=== PATIENT | female | born 1995 | race Caucasian/White ===

== ENCOUNTER 2016-12-02 05:13 | Day surgery (SDC) | payer BC ==
[~2016-12-02] VITALS: Ht 160 cm; Wt 44.5 kg
[~2016-12-02 05:13] MED LIST: ACET473E5 PO; ALPR0.25 PO; ALPR1TAB2 PO; ARIP2TAB3 PO; AZIT-21 PO; BSP5T PO; DEXT10TA9 PO; FRS325T PO; LORA0.5T PO; MULT1CAP27 PO; NAPR-243 PO; NITR-65 PO; ONDA4TAB11 PO; mirtazapine
[2016-12-02] MEDS ORDERED: KETOROLAC 30 MG/ML VIAL IVP STA (05:29)
[2016-12-02] MEDS ORDERED: tylenol (05:29)
[2016-12-02] MEDS ORDERED: LACTATED RINGERS 1,000 ML IV ONE ×5 (05:29→13:45)
[2016-12-02] MEDS ORDERED: ONDANSETRON 4 MG/2 ML (SDV) Z0FRAN IVP ONE (05:30)
--- NOTE | 2016-12-02 05:36 | ED Abdominal Pain ---
General Chief Complaint: Abdominal/GI Problems Stated Complaint: RT SIDE PAIN Nursing Triage Note: pt c/o right side pain x 2 weeks, worsening gradually. she has been seen by dr jackson et has had us done checking gallbladder. pt reports pain is severe tonight. pt points to rlq when c/o pain. Sepsis Screen: No Definite Risk Source of Information: Patient History of Present Illness Time Seen By Provider: 05:20 Initial Comments C/O RLQ PAIN X 2 WEEKS, MUCH WORSE SINCE LAST NIGHT PAIN IS ON ENTIRE RIGHT SIDE OF ABDOMEN AND IN RIGHT FLANK AREA TOO,BUT IS WORST IN RLQ HURTS TO WALK, MOVE OR TAKE A DEEP BREATH ONGOING NAUSEA FOR 2 WEEKS, HAD VOMITING ON Thursday11/28/16 NO FEVER NO CONSTIPATION OR DIARRHEA, HAD A NORMAL BM YESTERDAY 12/01/16 NO BURNING ON URINATION, BUT ABDOMEN HURTS TO PUSH/STRAIN TO VOID TOOK 1/2 TYLENOL LAST EVENING WITHOUT RELIEF LMP BEGAN 4 DAYS AGO AND CONTINUES, NORMAL. NO CONTROL SAW INDUSTRIAL ECOLOGIST AT DR. JACKSON'S OFFICE LAST Thursday11/26/16 AND HAD OUTPATIENT LAB AND GB ULTRASOUND--REPORTEDLY NORMAL. HAS HIDA SCAN SCHEDULED FOR 12/15/16 PCP: DR. JACKSON/INDUSTRIAL ECOLOGIST Allergies and Home Medications Allergies Coded Allergies: Penicillins (Unverified Allergy, Unknown, 10/25/15) Home Medications [tylenol] , (Reported) Review of Systems Constitutional: no symptoms reported Respiratory: No Symptoms Reported Cardiovascular: No Symptoms Reported Gastrointestinal: See HPI, Abdominal Pain, Nausea, Vomiting Genitourinary: See HPI Musculoskeletal: see HPI Skin: no symptoms reported Psychiatric/Neurological: No Symptoms Reported Endocrine: No Symptoms Reported Hematologic/Lymphatic: No Symptoms Reported Past Qzezjwu-Fxonbp-Hwneep Hx Patient Social History Alcohol Use: Occasionally Uses Recreational Drug Use: No Smoking Status: Current Everyday Smoker Type Used: Cigarettes Recent Foreign Travel: No Contact w/Someone Who Travel: No Recent Infectious Disease Expo: No Recent Hopitalizations: No Seasonal Allergies Seasonal Allergies: No Surgeries HX Surgeries: Yes (URETHRAL DILATION) Surgeries: Bladder Surgery Respiratory Hx Respiratory Disorders: No Cardiovascular Hx Cardiac Disorders: No Neurological Hx Neurological Disorders: No Reproductive System Hx Reproductive Disorders: No Female Reproductive Disorders: Denies Genitourinary Hx Genitourinary Disorders: No Gastrointestinal Hx Gastrointestinal Disorders: Yes Gastrointestinal Disorders: Gastroesophageal Reflux, Irritable Bowel Musculoskeletal Hx Musculoskeletal Disorders: No Endocrine Hx Endocrine Disorders: No HEENT HX ENT Disorders: No Cancer Hx Cancer: No Psychosocial Hx Psychiatric Problems: Yes Behavioral Health Disorders: ADD/ADHD, Anxiety Integumentary HX Skin/Integumentary Disorder: No Blood Transfusions Hx Blood Disorders: No Family Medical History Significant Family History: No Pertinent Family Hx Physical Exam Vital Signs VS - Last 72 Hours, by Label 12/02/16 05:21 Temp 98.4 Pulse 99 Resp 18 B/P (MAP) 122/84 Capillary Refill : Less Than 3 Seconds General Appearance: other (HOLDING RLQ, WALKS SLOWLY BENT AT WAIST. ), thin Respiratory: normal breath sounds, no respiratory distress, no accessory muscle use Cardiovascular: no edema, no murmur Gastrointestinal: normal bowel sounds, no organomegaly, no pulsatile mass, guarding, rebound, tenderness, No hernia, No mass, other (LIMITED EXAM PT REPEATEDLY GRABS MY HAND AND PUSHES IT AWAY WHEN TRYING TO EXAMINE ANY PART OF ABDOMEN, BUT HAS DIFFUSE RIGHT SIDED AND MID ABDOMINAL TENDERNESS, AND RIGHT FLANK TENDERNESS. + ROVSING'S. + REBOUND, NEGATIVE PSOAS AND OBTURATOR. + HEEL TAP) Back: CVA tenderness (R) Neurologic/Psychiatric: cyber analyst II-XII nml as tested, no motor/sensory deficits, alert, oriented x 3, other (ANXIOUS, CRIES ON EXAM) Skin: normal color, warm/dry, tattoos/piercings (MULTIPLE TATTOOS AND PIERCINGS .) Progress/Results/Core Measures Results/Orders Lab Results Laboratory Tests Test 12/02/16 05:35 12/02/16 06:06 Range/Units White Blood Count 9.1 4.3-11.0 10^3/uL Red Blood Count 4.79 4.35-5.85 10^6/uL Hemoglobin 12.4 11.5-16.0 G/DL Hematocrit 39 35-52 % Mean Corpuscular Volume 81 80-99 FL Mean Corpuscular Hemoglobin 26 25-34 PG Mean Corpuscular Hemoglobin Concent 32 32-36 G/DL Red Cell Distribution Width 14.9 H 10.0-14.5 % Platelet Count 236 130-400 10^3/uL Mean Platelet Volume 11.2 H 7.4-10.4 FL Neutrophils (%) (Auto) 61 42-75 % Lymphocytes (%) (Auto) 29 12-44 % Monocytes (%) (Auto) 9 0-12 % Eosinophils (%) (Auto) 2 0-10 % Basophils (%) (Auto) 0 0-10 % Neutrophils # (Auto) 5.5 1.8-7.8 X 10^3 Lymphocytes # (Auto) 2.6 1.0-4.0 X 10^3 Monocytes # (Auto) 0.8 0.0-1.0 X 10^3 Eosinophils # (Auto) 0.2 0.0-0.3 10^3/uL Basophils # (Auto) 0.0 0.0-0.1 10^3/uL Sodium Level 140 135-145 MMOL/L Potassium Level 3.9 3.6-5.0 MMOL/L Chloride Level 104 98-107 MMOL/L Carbon Dioxide Level 24 21-32 MMOL/L Anion Gap 12 5-14 MMOL/L Blood Urea Nitrogen 7 7-18 MG/DL Creatinine 0.87 0.60-1.30 MG/DL Estimat Glomerular Filtration Rate > 60 BUN/Creatinine Ratio 8 Glucose Level 103 70-105 MG/DL Calcium Level 9.4 8.5-10.1 MG/DL Total Bilirubin 0.8 0.1-1.0 MG/DL Aspartate Amino Transf (AST/SGOT) 16 5-34 U/L Alanine Aminotransferase (ALT/SGPT) 6 0-55 U/L Alkaline Phosphatase 95 40-136 U/L Total Protein 7.8 6.4-8.2 G/DL Albumin 4.6 H 3.2-4.5 G/DL Amylase Level 60 25-125 U/L Lipase 10 8-78 U/L Serum Test, Qualitative NEGATIVE NEGATIVE Urine Color YELLOW Urine Clarity SLIGHTLY CLOUDY Urine pH 5 5-9 Urine Specific [place] 1.030 H 1.016-1.022 Urine Protein 1+ H NEGATIVE Urine Glucose (UA) NEGATIVE NEGATIVE Urine Ketones 1+ H NEGATIVE Urine Nitrite NEGATIVE NEGATIVE Urine Bilirubin NEGATIVE NEGATIVE Urine Urobilinogen NORMAL NORMAL MG/DL Urine Leukocyte Esterase 2+ H NEGATIVE Urine RBC (Auto) 5+ H NEGATIVE Urine RBC 25-50 H /HPF Urine WBC 2-5 /HPF Urine Squamous Epithelial Cells 5-10 /HPF Urine Crystals PRESENT H /LPF Urine Calcium Oxalate Crystals FEW H /LPF Urine Bacteria FEW H /HPF Urine Casts NONE /LPF Urine Mucus MODERATE H /LPF Urine Culture Indicated YES My Orders Orders - RUCHI,CINTHYA K DO Urine Bedside (12/02/16 05:22) Ua Culture If Indicated (12/02/16 05:22) Saline Lock/Iv-Start (12/02/16 05:29) Ct Abd/Pelv W (Appendicitis) (12/02/16 05:29) Amylase (12/02/16 05:29) Cbc With Automated Diff (12/02/16 05:29) Comprehensive Metabolic Panel (12/02/16 05:29) Lipase (12/02/16 05:29) Saline Lock/Iv-Start (12/02/16 05:29) Lactated Ringers (Lr 1000 Ml Iv Solution (12/02/16 05:29) Ondansetron Injection (Zofran Injectio (12/02/16 05:30) Ketorolac Injection (Toradol Injection) (12/02/16 05:29) Hcg,Qualitative Serum (12/02/16 05:56) Iohexol Injection (Omnipaque 350 Mg/Ml 1 (12/02/16 06:30) Ns (Ivpb) (Sodium Chloride 0.9% Ivpb Bag (12/02/16 06:30) Urine Culture (12/02/16 06:06) Medications Given in ED Current Medications Medications Dose Ordered Sig/Neftali Route Start Time Stop Time Status Last Admin Dose Admin Iohexol 100 ml ONCE ONCE IV 12/02/16 06:30 12/02/16 06:31 DC 12/02/16 06:24 100 ML Lactated Ringer's 1,000 ml @ 0 mls/hr Q0M ONCE IV 12/02/16 05:29 12/02/16 05:31 DC 12/02/16 05:40 1,000 MLS/HR Ondansetron HCl 4 mg ONCE ONCE IVP 12/02/16 05:30 12/02/16 05:31 DC 12/02/16 05:40 4 MG Sodium Chloride 100 ml ONCE ONCE IV 12/02/16 06:30 12/02/16 06:31 DC 12/02/16 06:24 80 ML Vital Signs/I&O Vital Sign - Last 12Hours 12/02/16 05:21 Temp 98.4 Pulse 99 Resp 18 B/P (MAP) 122/84 Blood Pressure Mean: [address] ABDOMEN/PELVIS--APPENDIX NOT VISUALIZED, SMALL AMOUNT OF FREE FLUID IN PELVIS , OTHERWISE NO ACUTE PROCESS, PER [facility] VIA FAX @ [id number] Reviewed: Reviewed by Me Departure Communication Progress Notes 711--SPOKE WITH DR. DEXTER , SURGEON TOUR COORDINATOR, ACCEPTS PT FOR ADMIT Impression Impression: Primary Impression: RLQ abdominal pain Disposition: ADMITTED INPATIENT Condition: Stable Decision to Admit Reason: Admit from ER (General) Decision to Admit/Date: Dec 02, 2016 Time/Decision to Admit Time: 07:15 Departure-Patient Inst. Referrals: EKTA JACKSON MD (PCP/Family) Primary Care Physician CINTHYA HOPPER DO Dec 02, 2016 05:35
[2016-12-02 05:48] LABS: BASOPHILS % (AUTO) 0 % (0-10); EOSINOPHILS # (AUTO) 0.2 10^3/uL (0.0-0.3); EOSINOPHILS % (AUTO) 2 % (0-10); LYMPHOCYTES # (AUTO) 2.6 X 10^3 (1.0-4.0); LYMPHOCYTES % (AUTO) 29 % (12-44); MEAN CORPUSCULAR HEMOGLOBIN 26 PG (25-34); MEAN CORPUSCULAR HGB CONC 32 G/DL (32-36); MEAN CORPUSCULAR VOLUME 81 FL (80-99); MEAN PLATELET VOLUME 11.2 FL (7.4-10.4); MONOCYTES # (AUTO) 0.8 X 10^3 (0.0-1.0); MONOCYTES % (AUTO) 9 % (0-12); NEUTROPHILS # (AUTO) 5.5 X 10^3 (1.8-7.8); NEUTROPHILS % (AUTO) 61 % (42-75); PLATELET COUNT 236 10^3/uL (130-400); RED BLOOD COUNT 4.79 10^6/uL (4.35-5.85); RED CELL DISTRIBUTION WIDTH 14.9 % (10.0-14.5); WHITE BLOOD COUNT 9.1 10^3/uL (4.3-11.0)
[2016-12-02 06:14] LABS: ALANINE AMINOTRANSFERASE 6 U/L (0-55); ALBUMIN 4.6 G/DL (3.2-4.5); AMYLASE 60 U/L (25-125); ANION GAP 12 MMOL/L (5-14); ASPARTATE AMINO TRANSFERASE 16 U/L (5-34); BILIRUBIN,TOTAL 0.8 MG/DL (0.1-1.0); BLOOD UREA NITROGEN 7 MG/DL (7-18); BUN/CREATININE RATIO 8; CALCIUM 9.4 MG/DL (8.5-10.1); CARBON DIOXIDE 24 MMOL/L (21-32); CHLORIDE 104 MMOL/L (98-107); CREATININE SERUM 0.87 MG/DL (0.60-1.30); GFR ESTIMATED > 60; GLUCOSE 103 MG/DL (70-105); LIPASE 10 U/L (8-78); POTASSIUM 3.9 MMOL/L (3.6-5.0); SODIUM 140 MMOL/L (135-145); TOTAL PROTEIN 7.8 G/DL (6.4-8.2)
[2016-12-02 06:14] LABS: BILIRUBIN,URINE NEGATIVE (NEGATIVE); KETONES,URINE 1+ (NEGATIVE); LEUKOCYTE ESTERASE ,URINE 2+ (NEGATIVE); NITRITE,URINE NEGATIVE (NEGATIVE); PH,URINE 5 (5-9); PROTEIN,URINE 1+ (NEGATIVE); UROBILINOGEN,URINE NORMAL (NORMAL)
[2016-12-02 06:28] LABS: CALCIUM OXALATE CRYSTALS,UR FEW /LPF
[2016-12-02] MEDS ORDERED: IOHEXOL 350 MG/ML 100 ML (OMNIPAQUE 350) VIAL IV ONE (06:30)
[2016-12-02] MEDS ORDERED: NS 100 ML (IVPB) BAG IV ONE (06:30)
--- NOTE | 2016-12-02 07:42 | Diagnostic Imaging Report ---
PROCEDURE: CT abdomen and pelvis with contrast, rule out appendicitis. TECHNIQUE: Multiple contiguous axial images were obtained through the abdomen and pelvis after the administration of intravenous contrast. INDICATION: Two-week history of right-sided abdominal pain progressively worsening. CORRELATION STUDY: 10/25/2015 FINDINGS: LOWER THORAX: Clear. LIVER: Unremarkable. GALLBLADDER: Present and unremarkable. No bile duct dilatation. SPLEEN: Unremarkable. PANCREAS: Unremarkable. ADRENAL GLANDS: Unremarkable. KIDNEYS: Normal configuration. No calcification or obstruction. ABDOMINAL AORTA: Unremarkable, nonaneurysmal. GASTROINTESTINAL TRACT: Mild severity fecal retention. Diffuse bowel distention is present. Cecum sits very low in the pelvis and appendix cannot be discretely localized. URINARY BLADDER: Decompressed. REPRODUCTIVE: Probable tampon within the vaginal vault. Uterus appearing unremarkable. Endometrium prominent. Small amount of free pelvic fluid is present. OSSEOUS STRUCTURES: No acute abnormality. IMPRESSION: 1. The appendix not definitively localized, therefore cannot be cleared. Remainder of the examination unremarkable. Dictated by: Dictated on workstation # [id number]
[2016-12-02 07:55] VITALS: BP 120/76
[2016-12-02] MEDS ORDERED: CATHETER FLUSH 10 ML SYR IV PRN (08:15)
[2016-12-02] MEDS ORDERED: ACET1TAB96 PO (08:29)
[2016-12-02] MEDS ORDERED: ACET-2469 PO (08:29)
[2016-12-02] MEDS: KETOROLAC 30 MG/ML VIAL IV PRN ×2 (10:29→21:23)
[2016-12-02] MEDS ORDERED: BUPIVACAINE 0.5% 30 ML (SENSORCAINE) VIAL ONE (11:53)
[2016-12-02] MEDS ORDERED: BUP/EPI 0.5% 1:200,000 (SENSORCAINE) 30 ML VIAL ONE (11:56)
[2016-12-02] MEDS: LACTATED RINGERS 1,000 ML IV SCH ×5 (11:57→21:11)
[2016-12-02 12:00] VITALS: BP 115/71
[2016-12-02] MEDS ORDERED: MIDAZOLAM 2 MG/2 ML (VERSED) VIAL ONE (12:09)
[2016-12-02] MEDS ORDERED: SEVOFLURANE (ULTANE) 15 ML INHAL SOLN ONE ×2 (12:09→13:33)
[2016-12-02] MEDS ORDERED: fentaNYL INJECTION 100 MCG/2 ML AMP ONE (12:09)
[2016-12-02] MEDS ORDERED: ROCURONIUM 50 MG/5 ML (ZEMURON) VIAL IV ONE (12:09)
[2016-12-02] MEDS ORDERED: CLINDAMYCIN 600 MG/4ML (CLEOCIN) VIAL ONE (12:10)
[2016-12-02] MEDS ORDERED: ONDANSETRON 4 MG/2 ML (SDV) Z0FRAN ONE ×3 (12:11→14:09)
[2016-12-02] MEDS ORDERED: DEXAMETHASONE PF 10 MG/ML (DECADRON) VIAL ONE (12:11)
--- NOTE | 2016-12-02 13:24 | Progress Note-Pre Operative ---
Pre-Operative Progress Note H&P Reviewed The H&P was reviewed, patient examined and no changes noted. Date H&P Reviewed: Dec 02, 2016 Time H&P Reviewed: 12:00 Pre-Operative Diagnosis: acute appendicitis MAYRA DEXTER MD Dec 02, 2016 1:24 pm
[2016-12-02] MEDS ORDERED: NEOSTIGMINE (BLOXIVERZ ) 1 MG/1ML 10 ML VIAL ONE (13:28)
[2016-12-02] MEDS ORDERED: GLYCOPYRROLATE 0.2 MG/ML (ROBINUL) 2 ML VIAL ONE (13:28)
[2016-12-02] MEDS ORDERED: morphine INJ 4 MG/ML 1 ML (VIAL/SYRINGE) IVP PRN (13:30)
[2016-12-02] MEDS ORDERED: CLINDAMYCIN 600 MG/50 ML IVPB 50 ML IV ONE (13:30)
[2016-12-02] MEDS ORDERED: CLINDAMYCIN INJECTION 600 MG in NS (IVPB) 50 ML IV ONE (13:30)
[2016-12-02] MEDS ORDERED: SULF1TAB35 PO (13:32)
[2016-12-02] MEDS ORDERED: HYDR-3729 PO (13:32)
[2016-12-02] MEDS ORDERED: KETOROLAC 30 MG/ML VIAL ONE (13:33)
--- NOTE | 2016-12-02 13:33 | Discharge Inst-Surgical ---
D/C Lap Instructions-GUERITA New, Converted, or Re-Newed RX: RX on Chart Follow Up Appt in 2 weeks Activity as tolerated No driving for 24 hours No driving while on pain medications Incentive Spirometry use every 2 hours while awake Regular Diet Symptoms to Report: Fever over 101 degree F, Nausea/Vomiting Infection Signs and Symptoms to report: Increased redness, Foul odor of wound, Increased drainage Bathing instructions: May shower Operative Area Clean/Dry; Keep incision clean/dry If any problems/questions: Contact your physician or go to Emergency Room MAYRA DEXTER MD Dec 02, 2016 1:33 pm
[2016-12-02] MEDS ORDERED: DOXYCYCLINE INJECTION 100 MG in NS (IVPB) 100 ML IV NR (13:35)
[2016-12-02] MEDS ORDERED: metroNIDAZOLE 500MG/100ML IVPB 100 ML IV NR (13:38)
[2016-12-02] MEDS: ONDANSETRON 4 MG/2 ML (SDV) Z0FRAN IVP PRN ×2 (13:40→14:13)
[2016-12-02] MEDS ORDERED: morphine INJ 10 MG/ML 1ML (SYR OR VIAL) ONE (13:45)
[2016-12-02] MEDS: morphine INJ 10 MG/ML 1ML (SYR OR VIAL) IVP PRN ×3 (13:59→14:11)
[2016-12-02] MEDS ORDERED: fentaNYL INJECTION 100 MCG/2 ML AMP IVP PRN (14:00)
[2016-12-02] MEDS: metroNIDAZOLE 500MG/100ML IVPB 100 ML IV NR ×2 (15:12→22:41)
[2016-12-02] MEDS ORDERED: PROMETHAZINE 25 MG (PHENERGAN) TAB ONE (15:38)
[2016-12-02] MEDS ORDERED: PROMETHAZINE 25 MG (PHENERGAN) TAB PO PRN (15:45)
[2016-12-02 16:00] VITALS: BP 119/74
[2016-12-02] MEDS: HYDROcodone/APAP 5 MG/325 MG (LORTAB) TAB PO PRN ×2 (16:08→20:13)
[2016-12-02] MEDS: ONDANSETRON 4 MG/2 ML (SDV) Z0FRAN IV PRN (19:15)
[2016-12-02 19:50] VITALS: BP 120/75
[2016-12-02] MEDS: NICOTINE 14 MG (NICODERM) PATCH TD SCH (21:00)
[2016-12-02] MEDS: DOXYCYCLINE 100 MG/NS 100 ML IVPB IV SCH ×2 (21:23)
[2016-12-02] MEDS: ALPRAZolam 0.25 MG (XANAX) TAB PO PRN (22:56)
[2016-12-03] MEDS: ONDANSETRON 4 MG/2 ML (SDV) Z0FRAN IV PRN (00:08)
[2016-12-03] MEDS: HYDROcodone/APAP 5 MG/325 MG (LORTAB) TAB PO PRN ×4 (00:50→14:22)
[2016-12-03 00:55] VITALS: BP 113/58
[2016-12-03] MEDS: LACTATED RINGERS 1,000 ML IV SCH (04:05)
[2016-12-03] MEDS: KETOROLAC 30 MG/ML VIAL IV PRN ×2 (04:06→10:27)
[2016-12-03 04:50] VITALS: BP 120/78
[2016-12-03] MEDS: metroNIDAZOLE 500MG/100ML IVPB 100 ML IV NR ×2 (05:59→14:13)
--- NOTE | 2016-12-03 07:49 | HISTORY AND PHYSICAL ---
DATE OF ADMISSION: 12/02/2016 ATTENDING PRIMARY CARE PHYSICIAN: Dr. Onofre Roth. Ms. Petty Templeton is a 21-year-old female who presented early this morning to [facility] emergency department with abdominal pain. She reported that the pain had started last night and has been on the right side of the abdomen and did localize towards the right lower abdominal quadrant. She reports that she has also had some issues with nausea and vomiting in the past few weeks. She does not report any issues with constipation and does state that she had a bowel movement yesterday which was normal in consistency. She does not report any red blood per rectum no any dark tarry stools. She reports having normal menstrual cycles. No history of menometrorrhagia. She did have outpatient work-up done including a gallbladder ultrasound, which did not show any gallstones. Upon examination, she does have pain at McBurney's point in the right lower abdominal quadrant, voluntary guarding. No rebound. PAST MEDICAL HISTORY: 1. Irritable bowel. 2. Gastroesophageal reflux disease. 3. ADHD. PAST SURGERIES: Urethral dilatation. ALLERGIES: PENICILLIN MEDICATIONS: Tylenol p.r.n. SOCIAL HISTORY: Positive smoke, occasional social alcohol. VITAL SIGNS: Temperature 98.7, blood pressure 120/76, pulse 65, respirations 20, pulse 100% on room air. REVIEW OF SYSTEMS: This is a well-nourished female, currently guarded secondary to the abdominal pain. She is not experiencing any shortness of breath or difficulty breathing. No chest pain, palpitations, diaphoresis. Intermittent episodes of nausea. No vomiting. No fever, chills, no recent inadvertent weight loss. PHYSICAL EXAMINATION: CHEST: Clear. HEART: Regular. EXTREMITIES: No lower extremity edema. Negative Homans sign. HEENT: No scleral icterus. No cervical lymphadenopathy. ABDOMEN: Soft, nondistended. There is pain in the right lower abdominal quadrant at McBurney's point with voluntary guarding. No rebound. LABS: WBC 9.1, hemoglobin 12.4, hematocrit 39, platelets 236, urinalysis did show 2+ leukocyte esterase. ASSESSMENT AND PLAN: 21-year-old female with right lower abdominal quadrant pain most likely consistent with early acute appendicitis based on her history and physical examination. CT scan was performed, which did not visualize the appendix. We will proceed with a diagnostic laparoscopy and laparoscopic appendectomy. Job ID: [id number] Dictated Date: 12/02/2016 12:04:17 Charge Machine Operator Date: 12/03/2016 07:32:35/marc
[2016-12-03 08:00] VITALS: BP 104/68
[2016-12-03] MEDS: ALPRAZolam 0.25 MG (XANAX) TAB PO PRN (08:35)
[2016-12-03] MEDS: DOXYCYCLINE 100 MG/NS 100 ML IVPB IV SCH ×2 (08:35)
[2016-12-03] MEDS: NICOTINE 14 MG (NICODERM) PATCH TD SCH (08:41)
--- NOTE | 2016-12-03 09:43 | Anesthesia-General Post-Op ---
General Patient Condition Mental Status/LOC: Same as Preop Cardiovascular: Satisfactory Nausea/Vomiting: Absent Respiratory: Satisfactory Pain: Controlled Complications: Absent Post Op Complications Complications None Follow Up Care/Instructions Patient Instructions None needed. Anesthesia/Patient Condition Patient Condition Patient is doing well, no complaints, stable vital signs, no apparent adverse anesthesia problems. No complications reported per nursing. LADARIUS LASSITER CRNA Dec 03, 2016 09:43
--- NOTE | 2016-12-03 11:50 | Progress Note (SOAP) ---
Subjective Subjective/Events-last exam doing well. pain controlled. tolerating diet. ambulating well. Objective Exam Vital Signs Date Time Temp Pulse Resp B/P (MAP) Pulse Ox O2 Delivery O2 Flow Rate FiO2 12/03/16 08:00 98.1 66 16 104/68 98 Room Air 12/03/16 04:50 98.9 56 12 120/78 98 Room Air 12/03/16 00:55 98.6 59 12 113/58 97 Room Air 12/02/16 20:00 Room Air 12/02/16 19:50 99.1 69 18 120/75 97 Room Air 12/02/16 16:00 97.9 65 20 119/74 99 Room Air 12/02/16 12:00 98.4 62 18 115/71 100 Room Air I & O 12/03/16 07:00 Intake Total 4960 ml Output Total 4000 ml Balance 960 ml Capillary Refill : Less Than 3 Seconds General Appearance: No Apparent Distress HEENT: PERRL/EOMI Neck: Full Range of Motion Respiratory: Chest Non Tender Cardiovascular: Regular Rate, Rhythm Gastrointestinal: normal bowel sounds, soft, tenderness Extremity: Normal Capillary Refill Neurologic/Psychiatric: Alert, Oriented x3 Skin: Normal Color Results Lab Microbiology 12/02/16 Urine Culture - Preliminary, Resulted Strep, Beta Hemolytic Group B Staph, Coag Neg (Environmental Safety Specialist) Assessment/Plan Assessment/Plan Assess & Plan/Chief Complaint periappendicitis secondary PID. results explained to patient as well as preventative measures. she will proceed with f/u with PMD and possible SKIVER BOX TOE consulation. home soon. Clinical Quality Measures DVT/VTE Risk/Contraindication: Risk Factor Score Per Nursin RFS Level Per Nursing on Admit: 1=Low/No VTE PPX MAYRA DEXTER MD Dec 03, 2016 11:50 am
[2016-12-03 12:00] VITALS: BP 142/86
[2016-12-03 14:30] VITALS: BP 142/86
--- NOTE | 2016-12-04 09:49 | OPERATIVE REPORT ---
PROCEDURE PHYSICIAN: MAYRA DEXTER DATE OF PROCEDURE: 12/02/2016 ATTENDING PRIMARY CARE PHYSICIAN: Dr. Onofre Roth. PREOPERATIVE DIAGNOSIS: Acute appendicitis. POSTOPERATIVE DIAGNOSIS: Periappendicitis and pelvic inflammatory disease. PROCEDURE: Diagnostic laparoscopy and laparoscopic appendectomy. SURGEON: Dr. Dexter. ANESTHESIA: General endotracheal. ESTIMATED BLOOD LOSS: Minimal. FINDINGS: Inflammatory changes within the right tuboovarian complex as well as encroaching upon the appendix causing periappendicitis. There was also some inflammatory changes over the right dome of the liver, a small cyst was identified of the left ovary. DISPOSITION: The patient tolerated the procedure well. Ms. Petty Templeton is a 21-year-old female who presented to [facility] emergency department early this morning for abdominal pain. She reports that the pain initially started a few weeks ago and was associated with some nausea. She underwent a work-up including an ultrasound, which did not show any gallstones. She reported the pain as more in the right lower abdominal quadrant and has persisted however has been manageable. She reports that last night the pain was much more intense. She does not report any fever or chills. She does not report any episodes of diarrhea nor constipation, states that she does have a bowel movement daily. A CT scan was performed, which did not visualize the appendix. Upon examination, she did have significant pain at McBurney's point with voluntary guarding in no rebound. The patient was brought to the operating room, laid supine on the table. After adequate IV pain and sedative medications and general endotracheal intubation the abdomen was prepped and draped in the standard surgical fashion. 0.5% Marcaine with epinephrine was used to anesthetize the overlying skin in the left upper abdominal quadrant. A small transverse incision made using a 15 blade. An 0 silk suture was applied to the medial aspect of the incision for retraction and a Veress needle inserted with low opening pressure of 0 mmHg and the abdomen was then insufflated to 15 mmHg pressure. The Veress needle removed and a 5 mm Xcel trocar placed followed by a 5 mm port 45 degree angle laparoscope, visualizing the peritoneal cavity. A four-quadrant abdominal exploration was performed. There was inflammation of the appendix and it was adherent to the right true and ovary. There was no abscess identified. There was some mild inflammatory changes over the right subphrenic space as well. Upon dissection of the appendix, there was periappendicitis. We are unsure if this is due to appendicitis burst; however, this may also be due to pelvic inflammatory disease. Under direct visualization we then proceeded to place the infraumbilical 10 mm port after the skin and peritoneum were anesthetized using 0.5% Marcaine with epinephrine and a transverse skin incision made using a 15 blade. In a similar manner, a suprapubic 5 mm port was placed. The patient was placed in Trendelenburg position. The appendix was then dissected out using blunt dissection. No abscesses were identified. There was increased turgor pressure of the appendix as well as mild inflammatory changes. A window was then created between the mesoappendix and the base of the appendix at the cecum using a [place] dissector. The appendix was then stapled and transected at the cecal base using a MANISH 45 mm stapler with a 2.5 mm thickness load. The mesoappendix was then stapled and transected with the same stapler with a 2 mm thickness reload. Good hemostasis was observed. The pelvis and abdomen was then copiously irrigated with saline and suctioned out. The appendix was removed through the 10 mm port site using an Endo Catch bag. The fascia and peritoneum and 10 mm port were then closed under direct visualization using a Lalo-Delvin device and 0 Vicryl suture. The abdomen was desufflated and the remaining ports removed. All skin incisions were closed using 4-0 Monocryl running subcuticular sutures. Wounds were then cleaned and covered with Dermabond. The patient tolerated the procedure well. We will admit her back to the floor and proceed with amoxicillin and Flagyl one dose and once she is tolerating liquids, has good pain control with oral pain medications and ambulating well, we will discharge her home. We will await the pathology results and also if she does have continuing or recurrent symptoms, we will refer her to gynecology. Job ID: [id number] Dictated Date: 12/02/2016 13:41:07 Waiter/Waitress Cabin Class Date: 12/04/2016 09:35:46 / marc
== END 2016-12-03 14:30 | disposition home or self-care (01) ==
LOC: EDUNIT# 05:13 → ER 05:17 → 4TH 07:15 → UNDOADMOB 07:15 → SDC 07:15 → UNDODISOB 12-03 14:30
PROVIDERS: ATTEND Surgery Pediatric Surgery
DX: K35.80 Unspecified acute appendicitis (principal); N73.9 Female pelvic inflammatory disease, unspecified
CPT/HCPCS: 36415; 74177; 80053; 81000; 82150; 83690; 84703; 85025; 87081; 87088; 88304; 96361; 96374; 96375

== ENCOUNTER 2017-04-04 09:29 | Emergency (ER) | payer BC ==
[~2017-04-04] VITALS: Ht 160 cm; Wt 44.5 kg
[~2017-04-04 09:29] MED LIST changes: +ACET-2469 PO; +ACET1TAB96 PO; +HYDR-3729 PO; +SULF1TAB35 PO; +tylenol
--- NOTE | 2017-04-04 10:05 | ED Neck-Back Pain/Injury ---
General Chief Complaint: Head/Cervical Problems Stated Complaint: BACK PAIN Nursing Triage Note: PT CO OF L NECK AND R SHOULDER PAIN. SINCE AWAKENING YESTERDAY AM Nursing Sepsis Screen: No Definite Risk Source of Information: Patient Exam Limitations: No Limitations History of Present Illness Time Seen by Provider: 09:54 Initial Comments Here with report of neck pain and difficulty with turning the head social to the right. Complains of right lateral neck pain from the scapula to the base of the skull and now she is having some left-sided pain as well. Denies numbness or weakness. Not better with Tylenol or Excedrin. Denies fever or chills. Denies recent illness or injury. Location: Paraspinous Muscles Timing/Duration: 2-3 Days Severity: Moderate Pain/Injury Location: Back, Neck Modifying Factors: Improves With Immobilization, Worse With Movement Associated Symptoms: muscle spasms, No fever, No weakness, No sensory/motor loss Allergies and Home Medications Allergies Coded Allergies: Penicillins (Unverified Allergy, Unknown, 10/25/15) Home Medications No Active Prescriptions or Reported Meds Constitutional: see HPI, No chills, No fever EENTM: no symptoms reported Respiratory: no symptoms reported Cardiovascular: no symptoms reported Gastrointestinal: no symptoms reported, No nausea, No vomiting Genitourinary: No dysuria, No pain Musculoskeletal: see HPI, muscle pain, muscle stiffness, neck pain Skin: No change in color, No lesions Past Vwuxymz-[id number]-Pifgdf Hx Patient Social History Alcohol Use: Occasionally Uses Recreational Drug Use: No Smoking Status: Current Everyday Smoker Type Used: Cigarettes Recent Foreign Travel: No Contact w/Someone Who Travel: No Recent Infectious Disease Expo: No Recent Hopitalizations: No Seasonal Allergies Seasonal Allergies: No Surgeries HX Surgeries: Yes (URETHRAL DILATION) Surgeries: Appendectomy, Bladder Surgery Respiratory Hx Respiratory Disorders: No Cardiovascular Hx Cardiac Disorders: No Neurological Hx Neurological Disorders: No Reproductive System Hx Reproductive Disorders: No Female Reproductive Disorders: Denies Genitourinary Hx Genitourinary Disorders: No Gastrointestinal Hx Gastrointestinal Disorders: Yes Gastrointestinal Disorders: Irritable Bowel Musculoskeletal Hx Musculoskeletal Disorders: No Endocrine Hx Endocrine Disorders: No HEENT HX ENT Disorders: No Cancer Hx Cancer: No Psychosocial Hx Psychiatric Problems: Yes Behavioral Health Disorders: ADD/ADHD, Anxiety Integumentary HX Skin/Integumentary Disorder: No Blood Transfusions Hx Blood Disorders: No Reviewed Nursing Assessment Reviewed/Agree w Nursing PMH: Yes Family Medical History Significant Family History: No Pertinent Family Hx Family Medial History: Hypertension 19 FATHER Physical Exam Vital Signs Vital Sign - Last 12Hours 04/04/17 09:35 Temp 97.4 Pulse 84 Resp 18 B/P (MAP) 120/90 Pulse Ox 100 Capillary Refill : Less Than 3 Seconds General Appearance: No Apparent Distress, WD/WN HEENT: PERRL/EOMI, Pharynx Normal Neck: Supple, Limited Range of Motion, No Lymphadenopathy (L), No Lymphadenopathy (R), Tender Lateral (right greater than left. She has), No Tender Midline Cardiovascular: Regular Rate, Rhythm, Normal Peripheral Pulses Respiratory: Lungs Clear, Normal Breath Sounds Back: No CVA Tenderness, No Vertebral Tenderness, Decreased Range of Motion, Muscle Spasm (right paraspinous from the scapula to the base of the skull) Extremity: Normal Inspection, Non Tender Neurologic/Psychiatric: Alert, Oriented x3 Skin: Normal Color, Warm/Dry Progress/Results/Core Measures Results/Orders My Orders Orders - JOO BERUMEN MD Hydrocodone/Apap 7.5/325 Tab (Lortab 7. (04/04/17 10:06) Ketorolac Injection (Toradol Injection) (04/04/17 10:06) Orphenadrine Injection (Norflex Injectio (04/04/17 10:06) Vital Signs/I&O Vital Sign - Last 12Hours 04/04/17 09:35 Temp 97.4 Pulse 84 Resp 18 B/P (MAP) 120/90 Pulse Ox 100 Blood Pressure Mean: 100 Progress Note : Progress Note Seen and evaluated. Toradol 60 mg IM, Norflex 60 mg IM and hydrocodone 7.5 mg by mouth. Monitor patient. Much improved afterwards. Discharged home with return precautions. Patient verbalize understanding instructions and agreement with plan. Departure Impression Impression: Primary Impression: Neck sprain Qualified Codes: S13.9XXA - Sprain of joints and ligaments of unspecified parts of neck, initial encounter Additional Impression: Upper back strain Qualified Codes: S29.012A - Strain of muscle and tendon of back wall of thorax , initial encounter Disposition: 01 HOME, SELF-CARE Condition: Improved Departure-Patient Inst. Decision time for Depature: 12:09 Referrals: EKTA ZIEGLER MD (PCP/Family) Primary Care Physician Patient Instructions: Cervical Muscle Strain (DC), Neck Sprain (DC) Add. Discharge Instructions: All discharge instructions reviewed with patient and/or family. Voiced understanding. Take ibuprofen 600 mg every 8 hours as needed for pain. Take other medications as prescribed. Do not take Tylenol and the prescribed pain medicine hydrocodone /acetaminophen as they both have acetaminophen in them. Do not take the prescribed pain medicine while at work or driving as it will make you drowsy. You may take Tylenol instead of the prescribed pain medicine while at work. Follow-up with your Dr. in a few days for recheck. Return for worse pain, fever , vomiting, weakness, breathing problems or other concerns as needed. Scripts Hydrocodone/Acetaminophen (Hydrocodon -Acetaminophen 5-325) 1 Each Tablet 1 EACH PO Q6H Y for PAIN-MODERATE, #8 TAB 0 Refills Prov: JOO BERUMEN MD 04/04/17 Cyclobenzaprine HCl (Cyclobenzaprine HCl) 10 Mg Tablet 10 MG PO Q8H Y for SPASMS, #12 TAB 0 Refills Prov: JOO BERUMEN MD 04/04/17 Work/School Note: Work Release Form Date Seen in the Emergency Department: Apr 04, 2017 Return to Work: Apr 06, 2017 Other Restrictions Listed Below: No lifting greater than 10 pounds for 7 days Restrictions: Then may return to normal activity JOO BERUMEN MD Apr 04, 2017 10:05
[2017-04-04] MEDS ORDERED: KETOROLAC 60 MG/2 ML VIAL IM STA (10:06)
[2017-04-04] MEDS ORDERED: HYDROcodone/APAP 7.5 MG/325 MG (LORTAB, LORCET PLUS) TABLET PO STA (10:06)
[2017-04-04] MEDS ORDERED: ORPHENADRINE 60 MG/2 ML (NORFLEX) AMP IM STA (10:06)
[2017-04-04] MEDS ORDERED: HYDR-3812 PO (12:13)
[2017-04-04] MEDS ORDERED: CYCL10TA9 PO (12:13)
[2017-04-04 12:19] VITALS: BP 116/72
== END 2017-04-04 12:19 | disposition home or self-care (01) ==
LOC: EDUNIT# 09:29 → ER 09:32
DX: S13.9XXA Sprain of joints and ligaments of unspecified parts of neck, initial encounter (principal); S29.012A Strain of muscle and tendon of back wall of thorax, initial encounter; F90.9 Attention-deficit hyperactivity disorder, unspecified type; F41.9 Anxiety disorder, unspecified; F17.210 Nicotine dependence, cigarettes, uncomplicated; Z90.49 Acquired absence of other specified parts of digestive tract; Z87.19 Personal history of other diseases of the digestive system; X58.XXXA Exposure to other specified factors, initial encounter
CPT/HCPCS: 96372; 99284

== ENCOUNTER 2017-08-04 09:55 | Emergency (ER) | payer BC ==
[~2017-08-04] VITALS: Ht 157.5 cm; Wt 44.9 kg
[~2017-08-04 09:55] MED LIST changes: +CYCL10TA9 PO; +HYDR-3812 PO
[2017-08-04 10:35] LABS: BILIRUBIN,URINE NEGATIVE (NEGATIVE); KETONES,URINE NEGATIVE (NEGATIVE); LEUKOCYTE ESTERASE ,URINE 1+ (NEGATIVE); NITRITE,URINE NEGATIVE (NEGATIVE); PH,URINE 6 (5-9); PROTEIN,URINE 1+ (NEGATIVE); UROBILINOGEN,URINE 1 MG/DL (NORMAL)
--- NOTE | 2017-08-04 10:57 | ED GU-Female ---
General Chief Complaint: -Female Stated Complaint: MENSTRUAL ISSUES Nursing Triage Note: ARRIVED VIA AMB TO ROOM 09. STATES SHE GOT OFF HER PERIOD OVER A WEEK AGO AND SHE STARTED BLEEDING AGAIN YESTERDAY. CALLED HER DR'S OFFICE WHO TOLD HER THERE WAS NOTHING REALLY TO DO SO SHE DECIDED TO COME TO ER. Nursing Sepsis Screen: No Definite Risk Source: patient Exam Limitations: no limitations History of Present Illness Time seen by provider: 10:55 Initial Comments 3 her with reports of irregular vaginal bleeding. She finished her regular menstrual period about a week ago and started bleeding again heavily yesterday and passing some tissue. She's had intermittent nausea with periods for the past few weeks. She is scheduled for a Pap smear at [facility] as office in [place] tomorrow. Timing/Duration: just prior to arrival Severity/Quality: moderate Location: suprapubic Radiation: none Activities at Onset: none Associated Symptoms: denies symptoms Allergies and Home Medications Allergies Coded Allergies: Penicillins (Unverified Allergy, Unknown, 10/25/15) Home Medications Cyclobenzaprine HCl 10 Mg Tablet, 10 MG PO Q8H PRN for SPASMS, #12 Ref 0 Prescribed by: JOO BERUMEN on 04/04/17 1213 Hydrocodone/Acetaminophen 1 Each Tablet, 1 EACH PO Q6H PRN for PAIN-MODERATE, # 8 Ref 0 Prescribed by: JOO BERUMEN on 04/04/17 1213 Constitutional: see HPI EENTM: see HPI Respiratory: no symptoms reported Cardiovascular: no symptoms reported Genitourinary: see HPI Musculoskeletal: no symptoms reported Skin: no symptoms reported Psychiatric/Neurological: No Symptoms Reported Past Xudcfrp-Hveyen-Nayxoj Hx Patient Social History Alcohol Use: Occasionally Uses Alcohol Beverage of Choice: Vodka Recreational Drug Use: No Smoking Status: Current Everyday Smoker Type Used: Cigarettes Recent Foreign Travel: No Contact w/Someone Who Travel: No Recent Infectious Disease Expo: No Recent Hopitalizations: No Seasonal Allergies Seasonal Allergies: No Surgeries History of Surgeries: Yes (URETHRAL DILATION) Surgeries: Appendectomy, Bladder Surgery Respiratory History of Respiratory Disorde: No Cardiovascular History of Cardiac Disorders: No Neurological History of Neurological Disord: No Reproductive System Hx Reproductive Disorders: No Female Reproductive Disorders: Denies Genitourinary History of Genitourinary Disor: Yes (Bladder stretched 10yrs ago-Dr. Delong) Gastrointestinal History of Gastrointestinal Di: Yes (GERD) Gastrointestinal Disorders: Irritable Bowel Musculoskeletal History of Musculoskeletal Dis: No Endocrine History of Endocrine Disorders: No Cancer History of Cancer: No Psychosocial History of Psychiatric Problem: Yes Behavioral Health Disorders: ADD/ADHD, Anxiety Integumentary History of Skin or Integumenta: No Blood Transfusions History of Blood Disorders: No Family Medical History Significant Family History: No Pertinent Family Hx Family Medial History: Hypertension 19 FATHER Physical Exam Vital Signs Vital Sign - Last 12Hours 08/04/17 10:00 Temp 98.0 Pulse 90 Resp 18 B/P (MAP) 139/87 (104) Pulse Ox 100 Capillary Refill : Less Than 3 Seconds General Appearance: WD/WN, no apparent distress HEENT: PERRL/EOMI, normal ENT inspection Neck: non-tender, full range of motion Respiratory: no respiratory distress, no accessory muscle use Gastrointestinal: normal bowel sounds, non tender Extremities: normal range of motion, non-tender Neurologic/Psychiatric: alert, normal mood/affect, oriented x 3 Skin: normal color, warm/dry Progress/Results/Core Measures Suspected Sepsis Recent Fever Within 48 Hours: No Infection Criteria Present: None New/Unexplained Altered Menta: No Sepsis Screen: No Definite Risk Sepsis Diagnosis: SIRS Temperature:98.0 Pulse: 90 Respiratory Rate: 18 Laboratory Tests 08/04/17 11:59: White Blood Count 4.6 Blood Pressure 139 /87 Mean: 104 Laboratory Tests 08/04/17 11:59: Platelet Count 169 Results/Orders Lab Results Laboratory Tests Test 08/04/17 10:30 08/04/17 11:59 Range/Units Urine Color YELLOW Urine Clarity SLIGHTLY CLOUDY Urine pH 6 5-9 Urine Specific [place] 1.025 H 1.016-1.022 Urine Protein 1+ H NEGATIVE Urine Glucose (UA) NEGATIVE NEGATIVE Urine Ketones NEGATIVE NEGATIVE Urine Nitrite NEGATIVE NEGATIVE Urine Bilirubin NEGATIVE NEGATIVE Urine Urobilinogen 1 NORMAL MG/DL Urine Leukocyte Esterase 1+ H NEGATIVE Urine RBC (Auto) 5+ H NEGATIVE Urine RBC 25-50 H /HPF Urine WBC 5-10 H /HPF Urine Squamous Epithelial Cells 2-5 /HPF Urine Crystals NONE /LPF Urine Bacteria FEW H /HPF Urine Casts NONE /LPF Urine Mucus MODERATE H /LPF Urine Culture Indicated NO White Blood Count 4.6 4.3-11.0 10^3/uL Red Blood Count 4.57 4.35-5.85 10^6/uL Hemoglobin 12.5 11.5-16.0 G/DL Hematocrit 38 35-52 % Mean Corpuscular Volume 83 80-99 FL Mean Corpuscular Hemoglobin 27 25-34 PG Mean Corpuscular Hemoglobin Concent 33 32-36 G/DL Red Cell Distribution Width 14.8 H 10.0-14.5 % Platelet Count 169 130-400 10^3/uL Mean Platelet Volume 11.3 H 7.4-10.4 FL Neutrophils (%) (Auto) 57 42-75 % Lymphocytes (%) (Auto) 30 12-44 % Monocytes (%) (Auto) 10 0-12 % Eosinophils (%) (Auto) 2 0-10 % Basophils (%) (Auto) 1 0-10 % Neutrophils # (Auto) 2.6 1.8-7.8 X 10^3 Lymphocytes # (Auto) 1.4 1.0-4.0 X 10^3 Monocytes # (Auto) 0.5 0.0-1.0 X 10^3 Eosinophils # (Auto) 0.1 0.0-0.3 10^3/uL Basophils # (Auto) 0.0 0.0-0.1 10^3/uL Human Chorionic Gonadotropin, Quant < 5 <5 MIU/ML My Orders Orders - ILIANA BAKER APRN Cbc With Automated Diff (08/04/17 10:55) Hcg,Quantitative (08/04/17 10:55) Us Non Ob Pelvis Comp/Transvag (08/04/17 10:55) Vital Signs/I&O Vital Sign - Last 12Hours 08/04/17 10:00 Temp 98.0 Pulse 90 Resp 18 B/P (MAP) 139/87 (104) Pulse Ox 100 Capillary Refill : Less Than 3 Seconds Blood Pressure Mean: 104 Point of Care Testing Urine -Bedside: Negative Departure Impression Impression: Primary Impression: Menorrhagia Disposition: 01 HOME, SELF-CARE Condition: Stable Departure-Patient Inst. Decision time for Depature: 11:54 Referrals: NO,LOCAL PHYSICIAN (PCP/Family) Primary Care Physician Patient Instructions: NO INSTRUCTIONS GIVEN Add. Discharge Instructions: 1. Use ibuprofen 800 mg every 8 hours. This will help with discomfort and also helps reduce endometrial blood flow which will slow down the bleeding. During your appointment with your provider tomorrow to discuss starting a form of oral control which can also improve irregular heavy blood ILIANA BAKER APRN Aug 04, 2017 10:57
--- OUTSIDE RECORDS SUMMARY | 2017-08-04 11:07 | XMS REPORT | Continuity of Care Document ---
Author Author [facility] Address Unknown Phone Unavailable Allergies Active Description Code Type Severity Reaction Onset Reported/Identified Relationship to Patient Clinical Status Yes Penicillins Drug Allergy 04/15/2011 Yes Penicillins Drug Allergy N/A N/A 04/15/2011 Yes Penicillins [id number] Drug Allergy Unknown N/A 10/25/2015 Medications There is no data. Problems Date Dx Coded Attending Type Code Diagnosis Diagnosed By 08/01/2010 300.4 MO DYSTHYMIC DISORDER 08/01/2010 DARRELL SPAIN 300.4 MO DYSTHYMIC DISORDER 08/01/2010 300.4 MO DYSTHYMIC DISORDER 08/01/2010 300.4 MO DYSTHYMIC DISORDER 08/01/2010 300.4 MO DYSTHYMIC DISORDER 08/01/2010 300.4 MO DYSTHYMIC DISORDER 08/01/2010 DARRELL SPAIN 300.4 MO DYSTHYMIC DISORDER 09/12/2010 300.02 AN GEN ANXIETY 09/12/2010 DARRELL SPAIN 300.02 AN GEN ANXIETY 09/12/2010 300.02 AN GEN ANXIETY 09/12/2010 300.02 AN GEN ANXIETY 09/12/2010 300.02 AN GEN ANXIETY 09/12/2010 300.02 AN GEN ANXIETY 09/12/2010 DARRELL SPAIN 300.02 AN GEN ANXIETY 11/27/2010 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 11/27/2010 DARRELL SPAIN 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 11/27/2010 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 11/27/2010 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 11/27/2010 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 11/27/2010 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 11/27/2010 DARRELL SPAIN 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 01/31/2011 V58.69 MEDICATION HIGH RISK 01/31/2011 DARRELL SPAIN V58.69 MEDICATION HIGH RISK 01/31/2011 V58.69 MEDICATION HIGH RISK 01/31/2011 V58.69 MEDICATION HIGH RISK 01/31/2011 V58.69 MEDICATION HIGH RISK 01/31/2011 V58.69 MEDICATION HIGH RISK 01/31/[facility] HIGH RISK 03/17/2011 296.35 MO DEPRESSIVE RECURRENT IN PART OR UNSPECIFIED REMISSION 03/17/2011 300.3 AN OBCESS COMP DIS 03/17/2011 [facility] 296.35 MO DEPRESSIVE RECURRENT IN PART OR UNSPECIFIED REMISSION 03/17/2011 [facility], DARRELL R 300.3 AN OBCESS COMP DIS 03/17/2011 296.35 MO DEPRESSIVE RECURRENT IN PART OR UNSPECIFIED REMISSION 03/17/2011 300.3 AN OBCESS COMP DIS 03/17/2011 296.35 MO DEPRESSIVE RECURRENT IN PART OR UNSPECIFIED REMISSION 03/17/2011 300.3 AN OBCESS COMP DIS 03/17/2011 296.35 MO DEPRESSIVE RECURRENT IN PART OR UNSPECIFIED REMISSION 03/17/2011 300.3 AN OBCESS COMP DIS 03/17/2011 296.35 MO DEPRESSIVE RECURRENT IN PART OR UNSPECIFIED REMISSION 03/17/2011 300.3 AN OBCESS COMP DIS 03/17/2011 [facility] 296.35 MO DEPRESSIVE RECURRENT IN PART OR UNSPECIFIED REMISSION 03/17/2011 [facility] 300.3 AN OBCESS COMP DIS 04/03/2011 Ot 578.0 HEMATEMESIS 04/03/2011 Ot 789.09 ABDOMINAL PAIN, OTHER SPECIFIED SITE 04/07/2011 Ot 530.11 REFLUX ESOPHAGITIS 04/15/2011 296.33 MO DEPRESSIVE RECURRENT SEVERE W/O PSYCHOTIC BEHAVIOR 04/15/2011 [facility] 296.33 MO DEPRESSIVE RECURRENT SEVERE W/O PSYCHOTIC BEHAVIOR 04/15/2011 296.33 MO DEPRESSIVE RECURRENT SEVERE W/O PSYCHOTIC BEHAVIOR 04/15/2011 296.33 MO DEPRESSIVE RECURRENT SEVERE W/O PSYCHOTIC BEHAVIOR 04/15/2011 296.33 MO DEPRESSIVE RECURRENT SEVERE W/O PSYCHOTIC BEHAVIOR 04/15/2011 296.33 MO DEPRESSIVE RECURRENT SEVERE W/O PSYCHOTIC BEHAVIOR 04/15/2011 [facility] 296.33 MO DEPRESSIVE RECURRENT SEVERE W/O PSYCHOTIC BEHAVIOR 07/16/2011 296.30 MO DEPRESSIVE RECURRENT UNSPECIFIED 07/16/2011 [facility], DARRELL R 296.30 MO DEPRESSIVE RECURRENT UNSPECIFIED 07/16/2011 296.30 MO DEPRESSIVE RECURRENT UNSPECIFIED 07/16/2011 296.30 MO DEPRESSIVE RECURRENT UNSPECIFIED 07/16/2011 296.30 MO DEPRESSIVE RECURRENT UNSPECIFIED 07/16/2011 296.30 MO DEPRESSIVE RECURRENT UNSPECIFIED 07/16/2011 [facility] 296.30 MO DEPRESSIVE RECURRENT UNSPECIFIED 11/28/2011 Ot 599.0 URIN TRACT INFECTION NOS 11/28/2011 Ot 625.3 DYSMENORRHEA 11/28/2011 Ot 625.9 FEM GENITAL SYMPTOMS NOS 03/19/2012 783.0 ANOREXIA 03/19/2012 [facility] 783.0 ANOREXIA 03/19/2012 783.0 ANOREXIA 03/19/2012 783.0 ANOREXIA 03/19/2012 783.0 ANOREXIA 03/19/2012 783.0 ANOREXIA 03/19/2012 [facility] 783.0 ANOREXIA 06/11/2012 311 DEPRESSIVE DISORDER NOS 06/11/2012 [facility] 311 DEPRESSIVE DISORDER NOS 06/11/2012 311 DEPRESSIVE DISORDER NOS 06/11/2012 311 DEPRESSIVE DISORDER NOS 06/11/2012 311 DEPRESSIVE DISORDER NOS 06/11/2012 311 DEPRESSIVE DISORDER NOS 06/11/2012 [facility] 311 DEPRESSIVE DISORDER NOS 07/02/2012 Ot 462 ACUTE PHARYNGITIS 05/10/2015 Ot 625.8 05/10/2015 Ot 620.2 05/10/2015 Ot 465.9 05/10/2015 EKTA ZIEGLER MD Ot 789.00 10/25/2015 Ot 625.8 10/25/2015 Ot 620.2 10/25/2015 Ot 465.9 10/25/2015 EKTA ZIEGLER MD Ot 789.00 10/25/2015 IVY HAAS Ot F12.10 CANNABIS ABUSE, UNCOMPLICATED 10/25/2015 IVY HAAS Ot F17.210 NICOTINE DEPENDENCE, CIGARETTES, UNCOMPL 10/25/2015 IVY HAAS Ot K92.1 MELENA 10/25/2015 IVY HAAS Ot R11.0 NAUSEA 10/25/2015 Ot 625.8 10/25/2015 Ot 620.2 10/25/2015 Ot 465.9 10/25/2015 EKTA ZIEGLER MD Ot 789.00 10/26/2015 ABEBE MONTE, IVY Lomeli Ot F12.10 10/26/2015 ABEBE MONTE, IVY Lomeli Ot F17.210 10/26/2015 ABEBE MONTE, IVY Lomeli Ot K92.1 10/26/2015 ABEBE OMNTE, IVY Lomeli Ot R11.0 10/31/2015 ABEBE MONTE, IVY Lomeli Ot F12.10 10/31/2015 ABEBE MONTE, IVY Lomeli Ot F17.210 10/31/2015 ABEBE MONTE, IVY Lomeli Ot K92.1 10/31/2015 ABEBE MONTE, IVY Lomeli Ot R11.0 11/30/2015 Ot 625.8 FEM GENITAL SYMPTOMS NEC 11/30/2015 Ot 620.2 OVARIAN CYST NEC/NOS 11/30/2015 Ot 465.9 ACUTE URI NOS 11/30/2015 EKTA ZIEGLER MD Ot 789.00 ABDOMINAL PAIN, UNSPECIFIED SITE 01/18/2016 Ot 625.8 FEM GENITAL SYMPTOMS NEC 01/18/2016 Ot 620.2 OVARIAN CYST NEC/NOS 01/18/2016 Ot 465.9 ACUTE URI NOS 01/18/2016 EKTA ZIEGLER MD Ot 789.00 ABDOMINAL PAIN, UNSPECIFIED SITE 12/02/2016 Ot 625.8 FEM GENITAL SYMPTOMS NEC 12/02/2016 Ot 620.2 OVARIAN CYST NEC/NOS 12/02/2016 Ot 465.9 ACUTE URI NOS 12/02/2016 EKTA ZIEGLER MD Ot 789.00 ABDOMINAL PAIN, UNSPECIFIED SITE 12/02/2016 Ot 625.8 FEM GENITAL SYMPTOMS NEC 12/02/2016 Ot 620.2 OVARIAN CYST NEC/NOS 12/02/2016 Ot 465.9 ACUTE URI NOS 12/02/2016 EKTA ZIEGLER MD Ot 789.00 ABDOMINAL PAIN, UNSPECIFIED SITE 12/03/2016 MAYRA DEXTER MD Ot K35.80 UNSPECIFIED ACUTE APPENDICITIS 12/03/2016 MAYRA DEXTER MD Ot N73.9 FEMALE PELVIC INFLAMMATORY DISEASE, UNSP 12/12/2016 MAYRA DEXTER MD Ot K35.80 UNSPECIFIED ACUTE APPENDICITIS 12/12/2016 MAYRA DEXTER MD Ot N73.9 FEMALE PELVIC INFLAMMATORY DISEASE, UNSP 04/04/2017 ATA HUITRON, JOO Green Ot F17.210 NICOTINE DEPENDENCE, CIGARETTES, UNCOMPL 04/04/2017 JOO BERUMEN MD, Ot F41.9 ANXIETY DISORDER, UNSPECIFIED 04/04/2017 JOO BERUMEN MD, Ot F90.9 ATTENTION-DEFICIT HYPERACTIVITY DISORDER 04/04/2017 JOO BERUMEN MD, Ot M54.2 CERVICALGIA 04/04/2017 JOO BERUMEN MD, Ot S13.9XXA SPRAIN OF JOINTS AND LIGAMENTS OF UNSP P 04/04/2017 JOO BERUMEN MD, Ot S29.012A STRAIN OF MUSCLE AND TENDON OF BACK WALL 04/04/2017 JOO BERUMEN MD, Ot X58.XXXA EXPOSURE TO OTHER SPECIFIED FACTORS, INI 04/04/2017 JOO BERUMEN MD, Ot Z87.19 PERSONAL HISTORY OF OTHER DISEASES OF TH 04/04/2017 JOO BERUMEN MD, Ot Z90.49 ACQUIRED ABSENCE OF OTHER SPECIFIED PART Procedures Code Description [place] [address] INDIV PSYTX 45/50 MIN 06/29/2012 25127 PSYTX PT&/FAMILY 45 MINUTES 09/01/2012 15231 PSYTX PT&/FAMILY 45 MINUTES 10/13/2012 70184 PSYTX PT&/FAMILY 45 MINUTES 11/25/2012 28087 PSYTX PT&/FAMILY 45 MINUTES 12/31/2012 75995 PSYTX PT&/FAMILY 45 MINUTES 04/06/2013 Results Test Result Range Complete blood count (CBC) with automated white blood cell (WBC) differential - 12/02/16 05:35 Blood leukocytes automated count (number/volume) 9.1 10*3/uL 4.3-11.0 Blood erythrocytes automated count (number/volume) 4.79 10*6/uL 4.35-5.85 Venous blood hemoglobin measurement (mass/volume) 12.4 g/dL 11.5-16.0 Blood hematocrit (volume fraction) 39 % 35-52 Automated erythrocyte mean corpuscular volume 81 [foz_us] 80-99 Automated erythrocyte mean corpuscular hemoglobin (mass per erythrocyte) 26 pg 25-34 Automated erythrocyte mean corpuscular hemoglobin concentration measurement ( mass/volume) 32 g/dL 32-36 Automated erythrocyte distribution width ratio 14.9 % 10.0-14.5 Automated blood platelet count (count/volume) 236 10*3/uL 130-400 Automated blood platelet mean volume measurement 11.2 [foz_us] 7.4-10.4 Automated blood neutrophils/100 leukocytes 61 % 42-75 Automated blood lymphocytes/100 leukocytes 29 % 12-44 Blood monocytes/100 leukocytes 9 % 0-12 Automated blood eosinophils/100 leukocytes 2 % 0-10 Automated blood basophils/100 leukocytes 0 % 0-10 Blood neutrophils automated count (number/volume) 5.5 10*3 1.8-7.8 Blood lymphocytes automated count (number/volume) 2.6 10*3 1.0-4.0 Blood monocytes automated count (number/volume) 0.8 10*3 0.0-1.0 Automated eosinophil count 0.2 10*3/uL 0.0-0.3 Automated blood basophil count (count/volume) 0.0 10*3/uL 0.0-0.1 Comprehensive metabolic panel - 12/02/16 05:35 Serum or plasma sodium measurement (moles/volume) 140 mmol/L 135-145 Serum or plasma potassium measurement (moles/volume) 3.9 mmol/L 3.6-5.0 Serum or plasma chloride measurement (moles/volume) 104 mmol/L 98-107 Carbon dioxide 24 mmol/L 21-32 Serum or plasma anion gap determination (moles/volume) 12 mmol/L 5-14 Serum or plasma urea nitrogen measurement (mass/volume) 7 mg/dL 7-18 Serum or plasma creatinine measurement (mass/volume) 0.87 mg/dL 0.60-1.30 Serum or plasma urea nitrogen/creatinine mass ratio 8 NRG Serum or plasma creatinine measurement with calculation of estimated glomerular filtration rate > NRG Serum or plasma glucose measurement (mass/volume) 103 mg/dL 70-105 Serum or plasma calcium measurement (mass/volume) 9.4 mg/dL 8.5-10.1 Serum or plasma total bilirubin measurement (mass/volume) 0.8 mg/dL 0.1-1.0 Serum or plasma alkaline phosphatase measurement (enzymatic activity/volume) 95 U/L 40-136 Serum or plasma aspartate aminotransferase measurement (enzymatic activity/ volume) 16 U/L 5-34 Serum or plasma alanine aminotransferase measurement (enzymatic activity/volume ) 6 U/L 0-55 Serum or plasma protein measurement (mass/volume) 7.8 g/dL 6.4-8.2 Serum or plasma albumin measurement (mass/volume) 4.6 g/dL 3.2-4.5 Serum or plasma amylase measurement (enzymatic activity/volume) - 12/02/16 05: 35 Serum or plasma amylase measurement (enzymatic activity/volume) 60 U /L 25-125 Lipase - 12/02/16 05:35 Lipase 10 U/L 8-78 Serum or plasma choriogonadotropin ( test) detection - 12/02/16 05:35 Serum or plasma choriogonadotropin ( test) detection NEGATIVE NEGATIVE Complete urinalysis with reflex to culture - 12/02/16 06:06 Urine color determination YELLOW NRG Urine clarity determination SLIGHTLY CLOUDY NRG Urine pH measurement by test strip 5 5-9 Specific gravity of urine by test strip 1.030 1.016- 1.022 Urine protein assay by test strip, semi-quantitative 1+ NEGATIVE Urine glucose detection by automated test strip NEGATIVE NEGATIVE Erythrocytes detection in urine sediment by light microscopy 5+ NEGATIVE Urine ketones detection by automated test strip 1+ NEGATIVE Urine nitrite detection by test strip NEGATIVE NEGATIVE Urine total bilirubin detection by test strip NEGATIVE NEGATIVE Urine urobilinogen measurement by automated test strip (mass/volume) NORMAL NORMAL Urine leukocyte esterase detection by dipstick 2+ NEGATIVE Automated urine sediment erythrocyte count by microscopy (number/high power field) [HPF] NRG Automated urine sediment leukocyte count by microscopy (number/high power field ) [HPF] NRG Bacteria detection in urine sediment by light microscopy FEW NRG Squamous epithelial cells detection in urine sediment by light microscopy 5-10 NRG Crystals detection in urine sediment by light microscopy PRESENT NRG Casts detection in urine sediment by light microscopy NONE NRG Mucus detection in urine sediment by light microscopy MODERATE NRG Complete urinalysis with reflex to culture YES NRG Calcium oxalate crystals detection in urine sediment by light microscopy FEW NRG Bacterial urine culture - 12/02/16 06:06 Bacterial urine culture [id number] NRG COLONY COUNT <10,000 NRG URINE CULTURE RESULTS PLUS NRG Methicillin resistant Staphylococcus aureus (MRSA) screening culture - 11:15 Methicillin resistant Staphylococcus aureus (MRSA) screening culture NEG NRG Complete urinalysis with reflex to culture - 08/04/17 10:30 Urine color determination YELLOW NRG Urine clarity determination SLIGHTLY CLOUDY NRG Urine pH measurement by test strip 6 5-9 Specific gravity of urine by test strip 1.025 1.016- 1.022 Urine protein assay by test strip, semi-quantitative 1+ NEGATIVE Urine glucose detection by automated test strip NEGATIVE NEGATIVE Erythrocytes detection in urine sediment by light microscopy 5+ NEGATIVE Urine ketones detection by automated test strip NEGATIVE NEGATIVE Urine nitrite detection by test strip NEGATIVE NEGATIVE Urine total bilirubin detection by test strip NEGATIVE NEGATIVE Urine urobilinogen measurement by automated test strip (mass/volume) 1 mg/dL NORMAL Urine leukocyte esterase detection by dipstick 1+ NEGATIVE Automated urine sediment erythrocyte count by microscopy (number/high power field) [HPF] NRG Automated urine sediment leukocyte count by microscopy (number/high power field ) [HPF] NRG Bacteria detection in urine sediment by light microscopy FEW NRG Squamous epithelial cells detection in urine sediment by light microscopy 2-5 NRG Crystals detection in urine sediment by light microscopy NONE NRG Casts detection in urine sediment by light microscopy NONE NRG Mucus detection in urine sediment by light microscopy MODERATE NRG Complete urinalysis with reflex to culture NO NRG Encounters ACCT No. Visit Date/Time Discharge Status Pt. Type Provider Facility Loc./Unit Complaint [id number] 10/13/2012 14:51:00 10/13/2012 23:59:59 CLS Outpatient [id number] 09/01/2012 14:53:00 09/01/2012 23:59:59 CLS Outpatient DARRELL SPAIN [id number] 07/05/2012 00:00:00 07/05/2012 23:59:59 CLS Outpatient [id number] 06/29/2012 16:03:00 06/29/2012 23:59:59 CLS Outpatient DARRELL SPAIN [id number] 04/06/2013 14:59:00 Document Registration [id number] 12/28/2012 18:00:00 Document Registration [id number] 11/25/2012 16:01:00 Document Registration [id number] 04/04/2017 09:32:00 04/04/2017 12:19:00 DIS Emergency JOO BERUMEN MD [facility] ER BACK PAIN [id number] 02/20/2017 13:30:00 02/20/2017 23:59:59 CLS Preadmit ROSALINDA HAMMOND [facility] RAD NODULE L FOREARM [id number] 12/15/2016 10:15:00 12/15/2016 23:59:59 CLS Preadmit 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[facility] CARD RUQ PAIN [id number] 12/02/2016 07:15:00 12/03/2016 14:30:00 DIS Outpatient MAYRA DEXTER MD [facility] SDC RLQ PAIN [id number] 10/25/2015 14:33:00 10/25/2015 18:13:00 DIS Emergency IVY HAAS [facility] ER BLOOD IN STOOLS [id number] 01/13/2013 12:30:00 01/13/2013 23:59:59 CLS Outpatient TONEY HUITRON, EKTA Nieves [facility] RAD ABD PAIN AND CRAMPING [id number] 08/04/2017 09:57:00 ACT Emergency JOO BERUMEN MD [facility] ER MENSTRUAL ISSUES [id number] 07/02/2012 21:12:00 Document Registration [id number] 11/28/2011 08:27:00 Document Registration [id number] 11/07/2011 15:44:00 Document Registration [id number] 09/02/2011 09:59:00 Document Registration [id number] 07/17/2011 09:54:00 Document Registration [id number] 04/07/2011 12:22:00 Document Registration [id number] 04/03/2011 14:04:00 Document Registration
--- NOTE | 2017-08-04 12:03 | Diagnostic Imaging Report ---
US NON OB PELVIS COMP/TRANSVAG TECHNIQUE: Transabdominal and transvaginal grayscale, color Doppler and pulse duplex imaging of the pelvis was performed. INDICATION: Vaginal bleeding. FINDINGS: The uterus measures 7.5 x 4.1 x 3.3 cm. The myometrium is normal in echogenicity without discrete mass. The endometrium measures up to 0.2 cm where visualized, and is normal in echogenicity. The right ovary measures 5.1 x 2.1 x 2.2 cm. The left ovary measures 3.5 x 2.2 x 2.1 cm. Both ovaries are physiologic in appearance with small subcentimeter follicles present. Blood flow is seen in both ovaries on color Doppler imaging. No suspicious adnexal mass or fluid collection. No free pelvic fluid. IMPRESSION: 1. Physiologic appearance of the endometrium which is normal in thickness measuring 0.2 cm. 2. No myometrial mass such as fibroid. 3. Physiologic appearance of the ovaries with normal blood flow. No ovarian torsion. Dictated by: Dictated on workstation # [id number]
[2017-08-04 12:15] LABS: BASOPHILS % (AUTO) 1 % (0-10); EOSINOPHILS # (AUTO) 0.1 10^3/uL (0.0-0.3); EOSINOPHILS % (AUTO) 2 % (0-10); LYMPHOCYTES # (AUTO) 1.4 X 10^3 (1.0-4.0); LYMPHOCYTES % (AUTO) 30 % (12-44); MEAN CORPUSCULAR HEMOGLOBIN 27 PG (25-34); MEAN CORPUSCULAR HGB CONC 33 G/DL (32-36); MEAN CORPUSCULAR VOLUME 83 FL (80-99); MEAN PLATELET VOLUME 11.3 FL (7.4-10.4); MONOCYTES # (AUTO) 0.5 X 10^3 (0.0-1.0); MONOCYTES % (AUTO) 10 % (0-12); NEUTROPHILS # (AUTO) 2.6 X 10^3 (1.8-7.8); NEUTROPHILS % (AUTO) 57 % (42-75); PLATELET COUNT 169 10^3/uL (130-400); RED BLOOD COUNT 4.57 10^6/uL (4.35-5.85); RED CELL DISTRIBUTION WIDTH 14.8 % (10.0-14.5); WHITE BLOOD COUNT 4.6 10^3/uL (4.3-11.0)
[2017-08-04 12:58] VITALS: BP 139/87
== END 2017-08-04 12:58 | disposition home or self-care (01) ==
LOC: EDUNIT# 09:55 → ER 09:57
DX: N92.0 Excessive and frequent menstruation with regular cycle (principal); K21.9 Gastro-esophageal reflux disease without esophagitis; F90.9 Attention-deficit hyperactivity disorder, unspecified type; F41.9 Anxiety disorder, unspecified; F17.210 Nicotine dependence, cigarettes, uncomplicated; Z90.49 Acquired absence of other specified parts of digestive tract; Z87.19 Personal history of other diseases of the digestive system
CPT/HCPCS: 36415; 76830; 76856; 81000; 84702; 84703; 85025; 99282